=== PATIENT | male | born 1975 | race African-American/Black ===

== ENCOUNTER 2019-12-05 12:41 | Inpatient (IN) | payer MEDICAID, OTHER, SELFPAY ==
[~2019-12-05] VITALS: Ht 172.7 cm; Wt 104.0 kg
[2019-12-05 14:08] LABS: MEAN CORPUSCULAR HEMOGLOBIN 28.3 pg (27.5-34.5); MEAN CORPUSCULAR HGB CONC 31.5 g/dL (33.2-36.2); MEAN CORPUSCULAR VOLUME 89.9 fL (81-97); MEAN PLATELET VOLUME 9.1 fL (7.4-10.4); PLATELET COUNT 180 x10^3/uL (130-400); RED CELL DISTRIBUTION WIDTH 15.5 % (9.4-14.8)
[2019-12-05 14:15] LABS: ALANINE AMINOTRANSFERASE 60 U/L (12-78); ALBUMIN 4.4 g/dL (3.4-5.0); ANION GAP 14 mmol/L (5-15); CALCIUM 9.2 mg/dL (8.5-10.1); CHLORIDE 106 mmol/L (98-107)
[2019-12-05 14:16] LABS: SALICYLATE LEVEL < 1.7 mg/dL (2.8-20.0)
[2019-12-05 14:17] LABS: ALKALINE PHOSPHATASE 127 U/L (45-117); BILIRUBIN,TOTAL 0.5 mg/dL (0.2-1.0); TOTAL PROTEIN 8.5 g/dL (6.4-8.2)
[2019-12-05] MEDS ORDERED: SODIUM CHLORIDE 0.9% 1,000 ML IV ONE (14:31)
[2019-12-05 14:44] LABS: BASOPHILS # (AUTO) 0.01 x10^3/uL (0-0.1); BASOPHILS % (AUTO) 0 % (0-1); EOSINOPHILS # (AUTO) 0.01 x10^3/uL (0-0.4); EOSINOPHILS % (AUTO) 0 % (1-7); LYMPHOCYTES # (AUTO) 0.82 x10^3/uL (1-3.4); LYMPHOCYTES % (AUTO) 5 % (22-44); MD SCAN; MONOCYTES # (AUTO) 1.48 x10^3/uL (0.2-0.8); MONOCYTES % (AUTO) 8 % (2-9); NEUTROPHILS # (AUTO) 15.76 x10^3/uL (1.8-6.8); NEUTROPHILS % (AUTO) 87 % (42-75)
[2019-12-05] MEDS ORDERED: PLEASE ENTER ALLERGIES MC SCH (15:00)
[2019-12-05] MEDS ORDERED: SODIUM CHLORIDE FLUSH 10ML SYR IVF ONE (15:00)
[2019-12-05] MEDS ORDERED: SODIUM CHLORIDE 0.9% 1,000ML IVBOLUS ONE (15:00)
[2019-12-05] MEDS ORDERED: LABETALOL 5MG/ML, 20ML IVPush PRN (16:00)
[2019-12-05] MEDS ORDERED: SODIUM CHLORIDE FLUSH 10ML SYR IVF PRN (16:00)
[2019-12-05] MEDS ORDERED: hydrALAzine 20 MG/ML, 1ML IVPush PRN (16:00)
[2019-12-05] MEDS ORDERED: ONDANSETRON 2MG/ML, 2ML IVPush PRN (16:00)
[2019-12-05] MEDS ORDERED: ASPIRIN 81 MG TABLET CHEW PO STA (16:44)
[2019-12-05] MEDS ORDERED: ASPIRIN 81 MG TABLET CHEW ONE (16:56)
[2019-12-05] MEDS: SODIUM CHLORIDE 0.9% 250 ML IV SCH ×8 (17:00→23:00)
[2019-12-05 19:59] VITALS: BP 152/92
[2019-12-05] MEDS: SODIUM CHLORIDE 0.9% 1,000 ML IV SCH (21:58)
[2019-12-05] MEDS: LACTULOSE 10 GM/15 ML UDC PO SCH ×3 (22:00→23:20)
[2019-12-05] MEDS: HEPARIN 5,000 UNITS/ML, 1ML SQ SCH (22:00)
[2019-12-05] MEDS: ATORVASTATIN 40 MG TABLET PO SCH ×2 (22:00→22:21)
[2019-12-05 22:19] VITALS: BP 148/105
[2019-12-05] MEDS ORDERED: NALOXONE 1 MG/ML, 2ML IVPush ONE (23:00)
[2019-12-05 23:15] LABS: MICROSCOPIC INDICATED
[2019-12-05 23:16] VITALS: BP 121/76
[2019-12-05 23:25] LABS: AMPHETAMINE SCREEN, URINE Negative (Negative); BARBITURATE SCREEN, URINE Negative (Negative); BENZODIAZEPINE SCREEN, URINE Negative (Negative); CANNABINOID SCREEN, URINE Positive (Negative); CHLORIDE,URINE RANDOM 130 mmol/L; COCAINE SCREEN, URINE Negative (Negative); METHADONE SCREEN, URINE Negative (Negative); OPIATE SCREEN, URINE Positive (Negative); POTASSIUM,URINE RANDOM 89 mmol/L; SODIUM,URINE RANDOM 77 mmol/L
[2019-12-05 23:31] LABS: CULTURE INDICATED? YES
[2019-12-06 00:33] VITALS: BP 147/84
[2019-12-06] MEDS: SODIUM CHLORIDE 0.9% 250 ML IV SCH ×7 (01:00→05:20)
[2019-12-06] MEDS: SODIUM CHLORIDE 0.9% 1,000 ML IV SCH ×4 (04:00→15:23)
[2019-12-06 04:34] LABS: BASOPHILS % (AUTO) 0 % (0-1); EOSINOPHILS % (AUTO) 0 % (1-7); LYMPHOCYTES # (AUTO) 0.59 x10^3/uL (1-3.4); LYMPHOCYTES % (AUTO) 8 % (22-44); MD NO; MEAN CORPUSCULAR HEMOGLOBIN 28.3 pg (27.5-34.5); MEAN CORPUSCULAR HGB CONC 31.6 g/dL (33.2-36.2); MEAN CORPUSCULAR VOLUME 89.5 fL (81-97); MEAN PLATELET VOLUME 9.3 fL (7.4-10.4); MONOCYTES # (AUTO) 1.11 x10^3/uL (0.2-0.8); MONOCYTES % (AUTO) 16 % (2-9); NEUTROPHILS # (AUTO) 5.46 x10^3/uL (1.8-6.8); NEUTROPHILS % (AUTO) 76 % (42-75); PLATELET COUNT 181 x10^3/uL (130-400); RED BLOOD COUNT 5.53 x10^6/uL (4.38-5.82); RED CELL DISTRIBUTION WIDTH 15.1 % (9.4-14.8)
[2019-12-06 04:39] LABS: INTERNATIONAL NORMALIZED RATIO 1.09 (0.93-1.1); PROTHROMBIN TIME 11.6 Seconds (9.6-11.5)
[2019-12-06] MEDS: HEPARIN 5,000 UNITS/ML, 1ML SQ SCH ×3 (05:25→22:07)
[2019-12-06 06:05] LABS: ALBUMIN 3.5 g/dL (3.4-5.0); ANION GAP 6 mmol/L (5-15); CALCIUM 7.7 mg/dL (8.5-10.1); CHLORIDE 110 mmol/L (98-107)
[2019-12-06 06:11] LABS: ALANINE AMINOTRANSFERASE 125 U/L (12-78); ALKALINE PHOSPHATASE 88 U/L (45-117); BILIRUBIN,TOTAL 0.9 mg/dL (0.2-1.0); CREATININE 2.48 mg/dL (0.7-1.3); TOTAL PROTEIN 7.3 g/dL (6.4-8.2); TROPONIN I 0.474 ng/mL (0.000-0.045)
[2019-12-06] MEDS ORDERED: DEXTROSE 50%, 50ML SYRINGE IVPush ONE (06:30)
[2019-12-06] MEDS ORDERED: CALCIUM GLUCONATE 4.6 MEQ in SODIUM CHLORIDE 0.9% 50 ML IV ONE (06:30)
[2019-12-06] MEDS ORDERED: SODIUM POLYSTYRENE SULFONATE ORAL SUSP PR ONE (06:30)
[2019-12-06] MEDS ORDERED: INSULIN REGULAR 100 UNITS/ML, 3ML VIAL IVPush ONE (06:30)
[2019-12-06] MEDS ORDERED: SODIUM CHLORIDE 0.9% 1,000ML IVBOLUS ONE (07:30)
[2019-12-06 07:39] VITALS: BP 138/87
[2019-12-06] MEDS: LACTULOSE 10 GM/15 ML UDC PO SCH ×2 (10:02→22:06)
[2019-12-06 13:51] VITALS: BP 169/95
[2019-12-06 20:20] VITALS: BP 148/96
[2019-12-06] MEDS: ATORVASTATIN 40 MG TABLET PO SCH (22:06)
[2019-12-07 01:26] VITALS: BP 157/96
[2019-12-07] MEDS: SODIUM CHLORIDE 0.9% 1,000 ML IV SCH ×2 (03:32→14:56)
[2019-12-07 05:20] LABS: ALBUMIN 2.8 g/dL (3.4-5.0); ANION GAP 5 mmol/L (5-15); CHLORIDE 107 mmol/L (98-107)
[2019-12-07 05:25] LABS: ALANINE AMINOTRANSFERASE 135 U/L (12-78); ALKALINE PHOSPHATASE 65 U/L (45-117); BILIRUBIN,TOTAL 1.3 mg/dL (0.2-1.0); CALCIUM 8.4 mg/dL (8.5-10.1); CREATININE 1.37 mg/dL (0.7-1.3); TOTAL PROTEIN 6.1 g/dL (6.4-8.2)
[2019-12-07] MEDS: HEPARIN 5,000 UNITS/ML, 1ML SQ SCH ×3 (06:17→21:37)
[2019-12-07 08:09] VITALS: BP 161/68
[2019-12-07] MEDS ORDERED: ATOR40TA78 PO (09:33)
[2019-12-07] MEDS ORDERED: HYDR-3341 PO (09:33)
[2019-12-07] MEDS ORDERED: ISOS10TA2 PO (09:33)
[2019-12-07] MEDS ORDERED: ASPI-496 PO (09:33)
[2019-12-07] MEDS: LACTULOSE 10 GM/15 ML UDC PO SCH ×2 (09:50→21:37)
[2019-12-07] MEDS: ISOSORBIDE DINITRATE 10 MG TABLET PO SCH ×3 (09:50→21:36)
[2019-12-07 14:13] VITALS: BP 142/96
[2019-12-07 19:40] VITALS: BP 154/90
[2019-12-07 21:31] VITALS: BP 149/96
[2019-12-07] MEDS: ATORVASTATIN 40 MG TABLET PO SCH (21:37)
[2019-12-08 01:57] VITALS: BP 155/81
[2019-12-08] MEDS: SODIUM CHLORIDE 0.9% 1,000 ML IV SCH (04:23)
[2019-12-08] MEDS: HEPARIN 5,000 UNITS/ML, 1ML SQ SCH ×2 (05:52→13:21)
[2019-12-08 08:14] VITALS: BP 154/94
[2019-12-08] MEDS ORDERED: REGADENOSON 0.4 MG/5 ML SYRINGE ONE (08:53)
[2019-12-08] MEDS ORDERED: CARVEDILOL 3.125 MG TABLET PO SCH (09:00)
[2019-12-08] MEDS: LACTULOSE 10 GM/15 ML UDC PO SCH (09:41)
[2019-12-08] MEDS: ISOSORBIDE DINITRATE 10 MG TABLET PO SCH ×2 (09:41→15:59)
[2019-12-08 10:52] LABS: ALANINE AMINOTRANSFERASE 135 U/L (12-78); ALBUMIN 2.8 g/dL (3.4-5.0); ANION GAP 6 mmol/L (5-15); CALCIUM 8.3 mg/dL (8.5-10.1); CHLORIDE 106 mmol/L (98-107)
[2019-12-08 10:54] LABS: ALKALINE PHOSPHATASE 61 U/L (45-117); BILIRUBIN,TOTAL 1.1 mg/dL (0.2-1.0); TOTAL PROTEIN 6.1 g/dL (6.4-8.2)
[2019-12-08 13:19] VITALS: BP 150/82
[2019-12-08] MEDS ORDERED: CARV3.1212 PO (14:29)
[2019-12-08] MEDS ORDERED: HYDR-3342 PO (14:29)
== END 2019-12-08 16:25 | disposition home or self-care (01) | DRG 918 ==
LOC: ED 13:22 → EDIP 15:48 → 5SO 20:02
PROVIDERS: ADMIT Internal Medicine; ATTEND Internal Medicine
DX: T40.1X1A Poisoning by heroin, accidental (unintentional), initial encounter (principal); E87.2 Acidosis; N17.9 Acute kidney failure, unspecified; D72.829 Elevated white blood cell count, unspecified; E66.9 Obesity, unspecified; E86.0 Dehydration; E87.5 Hyperkalemia; I10 Essential (primary) hypertension; F19.10 Other psychoactive substance abuse, uncomplicated; Y92.89 Other specified places as the place of occurrence of the external cause; Z68.34 Body mass index [BMI] 34.0-34.9, adult; Z87.891 Personal history of nicotine dependence
CPT/HCPCS: 36415; 70450; 74022; 74176; 76770; 78452; 80053; 80074; 80307; 81001; 82140; 82436; 82570; 82607; 83605; 84132; 84133; 84300; 84443; 84484; 85025; 85610; 87040; 87086; 87806; 93005; 93017; 93306; 99285; G0378; J0610; J1644; J1815; J2785; A9502; G0475; J2310; J7030